=== PATIENT | female | born 1965 | race Caucasian/White ===

== ENCOUNTER → 2020-11-27 | Emergency (ER) | payer OTHER ==
[~2020-11-27] VITALS: Ht 152.4 cm; Wt 60.8 kg
[~2020-11-27] MED LIST: AMBIEN10 MG; BENADRYL25 MG PO; CLONAZEPAM2 MG; SEROQUEL50 MG PO; ZOLOFT50 MG PO
== END | disposition home or self-care (01) ==
LOC: ER 15:18
DX: R53.81 Other malaise (principal); F32.89 Other specified depressive episodes

== ENCOUNTER 2023-12-13 10:36 | Emergency (ER) | payer OTHER ==
[~2023-12-13] VITALS: Ht 152.4 cm; Wt 54.4 kg
[2023-12-13] MEDS ORDERED: 0.9 % SODIUM CHLORIDE 1,000 ML IV STA (11:59)
[2023-12-13] MEDS ORDERED: ONDANSETRON HCL 2 MG/ML VIAL IV ONE (12:00)
[2023-12-13] MEDS ORDERED: FAMOtidine 10 MG/ML (4ML VIAL) IV STA (12:00)
[2023-12-13 12:41] LABS: HEMATOCRIT 42.7 % (36.0-45.00); HEMOGLOBIN 14.2 g/dL (12.0-15.00); MEAN CELL VOLUME 100.3 fL (80.00-100.00); MEAN CORPUSCULAR HEMOGLOBIN 33.3 pg (27.00-32.0); MEAN CORPUSCULAR HGB CONC 33.2 g/dl (32.0-36.0); PLATELET COUNT 222 K/uL (150-450); RED BLOOD COUNT 4.26 M/uL (4.00-6.00); RED CELL DISTRIBUTION WIDTH 13.9 % (11.5-14.5)
[2023-12-13 13:16] LABS: CALCIUM 8.5 mg/dL (8.5-10.1); CREATININE SERUM 0.84 mg/dL (0.55-1.02); GFR 69.4; POTASSIUM 3.88 mEq/L (3.5-5.1)
== END 2023-12-13 14:47 | disposition home or self-care (01) ==
LOC: ER 10:36
PROVIDERS: General Practice
DX: R19.7 Diarrhea, unspecified (principal); F32.89 Other specified depressive episodes; Z88.0 Allergy status to penicillin; Z20.822 Contact with and (suspected) exposure to COVID-19